=== PATIENT | female | born 1960 | race Caucasian/White ===

== ENCOUNTER 2024-07-16 17:20 | Emergency (ER) | payer SELFPAY ==
--- NOTE | ~2024-07-16 | CT_ITS ---
CLINICAL HISTORY: fal +HS CT cervical spine without contrast Comparison: None Findings: Straightening of the cervical lordosis could be positional or due to muscle spasm. No subluxation. Vertebral body height is maintained. No acute fracture in the cervical spine. Craniocervical junction is intact. 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 Left facet arthropathy at C7-T1. Prevertebral soft tissues within normal limits. Thyroid appears unremarkable. Lung apices are clear. IMPRESSION: No acute findings. This document has been electronically signed by: Angie Porter MD on 07/16/2024 20:04:57
--- NOTE | ~2024-07-16 | CT_ITS ---
CLINICAL HISTORY: fall + HS CT head without contrast Comparison: None Findings: No intra-axial mass, midline shift, hydrocephalus, or acute hemorrhage. No significant atrophy-like change or white matter disease. Cavum septum pellucidum. There is no sinus or mastoid fluid. The orbits are within normal limits. No acute skull fracture. Nonacute focal changes of the skull in right lateral frontotemporal region could be from previous injury or postprocedure. IMPRESSION: 1. No acute intracranial findings. This document has been electronically signed by: Angie Porter MD on 07/16/2024 20:01:12
--- NOTE | ~2024-07-16 | XR_ITS ---
CLINICAL HISTORY: fall 2 view right forearm Comparison: None Findings: There is an oblique fracture involving the radial head/neck laterally. No additional fractures. No dislocation. Small corticated fragment lateral to the capitellum. Minimal calcification of lateral epicondyle bolus insertion common extensor tendon. No radiopaque foreign bodies. IMPRESSION: 1. Oblique fracture at lateral aspect of radial head/neck with no dislocation. 2. Elbow joint effusion. This document has been electronically signed by: Angie Porter MD on 07/16/2024 19:02:07
--- NOTE | ~2024-07-16 | XR_ITS ---
CLINICAL HISTORY: fall 4 view right elbow Comparison: None Findings: There is oblique intra-articular fracture involving lateral aspect of the radial head/neck. No dislocation. Elbow joint effusion. Small corticated fragment lateral to the capitellum distal humerus IMPRESSION: 1. Minimally-displaced intra-articular fracture of radial head/neck with no dislocation. 2. No dislocation This document has been electronically signed by: Angie Porter MD on 07/16/2024 19:03:19
--- NOTE | ~2024-07-16 | XR_ITS ---
CLINICAL HISTORY: fall 3 view right wrist Comparison: None Findings: No acute fracture. No dislocation. Degenerative changes at 1st carpometacarpal joint. No erosions. No radiopaque foreign body. IMPRESSION: 1. No acute findings. This document has been electronically signed by: Angie Porter MD on 07/16/2024 19:04:39
[2024-07-16 18:00] VITALS: BP 119/62; PULSE 79; RESP 16; TEMP 36.8; O2SAT 94; BMI 30.3
[2024-07-16 20:08] VITALS: BP 140/73; PULSE 70; RESP 20; TEMP 36.7; O2SAT 94
[2024-07-16] MEDS: oxyCODONE HCl Immed Release 5 MG TABLET PO (21:27)
--- NOTE | 2024-07-16 21:54 | ED.GENADULT ---
HPI - General Adult General Chief complaint: Fall Stated complaint: ?broken right arm fall Time Seen by Provider: 07/16/24 21:15 Source: patient, RN notes reviewed and old records reviewed Mode of arrival: ambulatory Limitations: no limitations History of Present Illness ED Provider: Prashant LINO narrative: 64-year-old female presents for evaluation of right arm pain. Patient reports that her right knee gave out causing her to fall onto her face and right side. There was no loss of consciousness. She is not on any medications. Denies any headache or neck pain. She has a small scrape to her right knee but denies any knee pain. Most of her pain is of the right elbow and forearm Her pain is 9/10 Related Data Previous Rx's ?Medication ?Instructions ?Recorded oxycodone 5 mg tablet 5 mg PO Q6H PRN severe pain (scale 07/16/24 score 7-10) #16 tabs Allergies Allergy/AdvReac Type Severity Reaction Status Date / Time codeine [CODEINE] Allergy Unknown AGITATION Verified 07/16/24 18:03 Review of Systems Constitutional: Constitutional: Denies body ache(s), Denies chills and Denies headache(s) Eyes: Eyes: Denies blurry vision ENT: Denies vertigo, Denies dizziness and Denies headache(s) Cardiovascular: Cardiovascular: Denies chest pain, Denies chest pain at rest, Denies syncope and Denies dyspnea Respiratory: Respiratory: Denies cough and Denies dyspnea Musculoskeletal: Musculoskeletal: Reports arthralgias, Reports joint swelling and Reports limited range of motion Integumentary/Breasts: Skin/Breast: Reports wounds Neurologic: Denies vertigo, Denies dizziness, Denies syncope and Denies headache(s) PMFSH Social History Social History Advance Directives: No Advance Directives Information Provided: No Physical Exam ED Vital Signs: Vital Signs - 24 hr 07/16/24 18:00 07/16/24 20:08 07/16/24 22:27 Temperature 98.2 F 98.0 F Pulse Rate 79 70 57 Respiratory Rate 16 20 20 Blood Pressure 119/62 140/73 H 119/71 Pulse Oximetry 94 94 Oxygen Delivery Method Room Air Room Air BMI result Body Mass Index 30.3 Const General: healthy appearing, comfortable, no acute distress, alert and awake Nutritional Appearance: well nourished Orientation/consciousness: patient oriented x3 HENMT Head: Yes normocephalic and Yes atraumatic Eyes Eyelids: Yes eyelids normal Conjunctivae: conjunctivae normal Sclerae: sclerae normal Corneas: corneas normal Pupils: Equal, round and reactive pupils present EOM: EOMs intact bilaterally Neck Neck: Yes full ROM Resp Effort & Inspection: normal respiratory effort, able to speak in complete sentences, no audible wheezes and not labored Auscultation: clear to auscultation bilaterally Cardio Rate: regular rate Rhythm: regular rhythm Skin General skin exam: elasticity normal Neuro General: patient oriented x3 Cranial nerves: Yes CN's II-XII intact bilaterally, Yes Equal, round and reactive pupils present and Yes Bilaterally intact EOM present Cognition (Neuro): normal cognition Extrem Other: There is a small abrasion to the right knee. She has good range of motion with flexion-extension of the right knee. She is able to bear weight without difficulty on both lower extremities. There was moderate edema with reduced range of motion of the right elbow. The edema extends into the proximal forearm. No significant right wrist or hand tenderness including over the scaphoid Medications Administered Discontinued Medications Generic Name Dose Route Start Last Admin Trade Name Freq PRN Reason Stop Dose Admin Oxycodone HCl 5 mg 07/16/24 21:23 07/16/24 21:27 Oxycodone Hcl Immed Release 5 Mg Tablet PO 07/16/24 21:24 5 mg ONCE ONE Administration Medical Decision Making Medical Decision Making [facility] Narrative: 64-year-old female presents for evaluation after a nonsyncopal fall. X-ray shows a radial head fracture. Compartments are soft, no evidence of compartment syndrome. I did have to cut off a ring on the right upper extremity that we are unable to remove due to swelling. She was placed in a sling for comfort and treatment of the radial head fracture. She will be discharged to follow up with Orthopedics. CT head and cervical spine unremarkable Differential Diagnosis Differential Diagnoses: The differential diagnosis associated with the presentation includes Radial head fracture Elbow fracture Contusion Wrist fracture Hand fracture Independent Interpretation I performed an independent interpretation of an: Plain X-Ray Interpretation: Positive sail sign of right elbow Radiology Impression Discussion of test interpretation with radiology: I have reviewed the radiologist's reading. Radiologist Impression: Findings: No intra-axial mass, midline shift, hydrocephalus, or acute hemorrhage. No significant atrophy-like change or white matter disease. Cavum septum pellucidum. There is no sinus or mastoid fluid. The orbits are within normal limits. No acute skull fracture. Nonacute focal changes of the skull in right lateral frontotemporal region could be from previous injury or postprocedure. IMPRESSION: 1. No acute intracranial findings. This document has been electronically signed by: Angie Porter MD on 07/16/2024 20:01:12 Findings: Straightening of the cervical lordosis could be positional or due to muscle spasm. No subluxation. Vertebral body height is maintained. No acute fracture in the cervical spine. Craniocervical junction is intact. 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 Left facet arthropathy at C7-T1. Prevertebral soft tissues within normal limits. Thyroid appears unremarkable. Lung apices are clear. IMPRESSION: No acute findings. This document has been electronically signed by: Angie Porter MD on 07/16/2024 20:04:57 Findings: No acute fracture. No dislocation. Degenerative changes at 1st carpometacarpal joint. No erosions. No radiopaque foreign body. IMPRESSION: 1. No acute findings. This document has been electronically signed by: Angie Porter MD on 07/16/2024 19:04:39 Findings: There is oblique intra-articular fracture involving lateral aspect of the radial head/neck. No dislocation. Elbow joint effusion. Small corticated fragment lateral to the capitellum distal humerus IMPRESSION: 1. Minimally-displaced intra-articular fracture of radial head/neck with no dislocation. 2. No dislocation This document has been electronically signed by: Angie Porter MD on 07/16/2024 19:03:19 Findings: There is an oblique fracture involving the radial head/neck laterally. No additional fractures. No dislocation. Small corticated fragment lateral to the capitellum. Minimal calcification of lateral epicondyle bolus insertion common extensor tendon. No radiopaque foreign bodies. IMPRESSION: 1. Oblique fracture at lateral aspect of radial head/neck with no dislocation. 2. Elbow joint effusion. This document has been electronically signed by: Angie Porter MD on 07/16/2024 19:02:07 Discharge Plan Discharge Clinical Impression: Fracture of radial head, right, closed Patient Disposition: Home, Self-Care Instructions: Elbow Fracture (ED) Additional Instructions: You have a fracture in your elbow at the radial head. Use ibuprofen/Tylenol for pain. You may use oxycodone for more severe, breakthrough pain This may make you drowsy, do not drink alcohol or drive after taking it Follow-up with orthopedics at the number provided. Wear the sling when you are up and moving around, but you can take it off when you sleep Prescriptions: New oxycodone 5 mg tablet 5 mg PO Q6H PRN (Reason: severe pain (scale score 7-10)) Qty: 16 0RF Rx Instructions: Partial Fill upon patient request. Referrals: [facility] [place] [facility] [Provider Group] (radial head fracture) Stand Alone Forms: Work/School Release Print Language: Nepali
[2024-07-16 22:27] VITALS: BP 119/71; PULSE 57; RESP 20
--- NOTE | 2024-07-16 22:45 | PC.NURSE ---
late entry- cms intact pt tolerated sling well. pt ambulatory at dischareg pt discharge to waiting room o await uber ride. pt verbalized understanding of discharge plan
[2024-07-16 22:50] VITALS: BP 119/71; PULSE 57; RESP 20; TEMP -17.7; TEMP 0; O2SAT 0
== END 2024-07-16 22:50 | disposition home or self-care (01) ==
PROVIDERS: Emergency Provider Emergency Medicine
DX: S52.124A Nondisplaced fracture of head of right radius, initial encounter for closed fracture (principal); W18.39XA Other fall on same level, initial encounter; M79.601 Pain in right arm; R60.0 Localized edema; Y93.9 Activity, unspecified; Y92.9 Unspecified place or not applicable; Y99.9 Unspecified external cause status
CPT/HCPCS: 70450; 72125; 73080; 73090; 73100; 99284

== ENCOUNTER → 2024-07-16 18:30 | Outpatient (BNV) | payer OTHER, SELFPAY | PROVIDERS: Visit Provider Specialist | DX: S09.90XA Unspecified injury of head, initial encounter (principal); S52.121A Displaced fracture of head of right radius, initial encounter for closed fracture; S52.131A Displaced fracture of neck of right radius, initial encounter for closed fracture; W19.XXXA Unspecified fall, initial encounter | CPT/HCPCS: 70450; 72125; 73080; 73090; 73100 ==